=== PATIENT | male | born 1960 | race Caucasian/White ===

== ENCOUNTER 2017-01-28 04:35 | Emergency (ER) | payer BC ==
[~2017-01-28] VITALS: Ht 182.9 cm; Wt 92.5 kg
[2017-01-28 04:35] VITALS: BP_SYST 133
--- NOTE | 2017-01-28 04:35 | NUR ---
ED MD [place] at bedside for medical evaluation.
--- NOTE | 2017-01-28 04:35 | NUR ---
Patient arrived to ED a/o x 4 with c/o 10/10 epigastric pain. Patient reports waking up at 0400 diaphoretic with ABD distention. Patient reports numbness to the left shoulder radiating down the left arm. Upon assessment, patient BP 123/62, HR 46, SpO2 99% on room air, RR 16. Patient appears in acute pain. Denies CP. Denies SOB. No slurred speech. No deficits noted. at bedside.
--- NOTE | 2017-01-28 04:35 | NUR ---
Placed in room 6. Placed on anvilsmith, blood pressure machine and pulse oximeter. To gown for exam. Side rails up.
--- NOTE | 2017-01-28 04:38 | NUR ---
Placed in room 01 . Placed on cardiac cath rn, blood pressure machine and pulse oximeter. To gown for exam. Side rails up. Report given to JULIO Olvera.
--- NOTE | 2017-01-28 04:40 | NUR ---
18 gauge angiocath placed to Left AC. Use of asceptic technique. Opsite placed over site. Blood return noted. Blood for lab drawn from site. Flushed with 10 cc of normal saline. No evidence of infiltration noted. Patient tolerated well.
--- NOTE | 2017-01-28 04:40 | NUR ---
Patient placed on 2L oxygen via nasal cannula.
--- NOTE | 2017-01-28 04:40 | NUR ---
Medicated per MD orders. IVF infusing with no s/s of infiltration at this time. Will continue to monitor
[2017-01-28] MEDS ORDERED: ASPIRIN 325 MG TABLET ONE (04:57)
[2017-01-28] MEDS ORDERED: ASPIRIN 81 MG TAB.CHEW ONE (04:59)
[2017-01-28] MEDS ORDERED: NITROGLYCERIN 1 INCH (GM) OINT. ONE (04:59)
[2017-01-28] MEDS ORDERED: NITROGLYCERIN 0.4 MG TAB.SUBL SL ONE (05:00)
[2017-01-28] MEDS ORDERED: ASPIRIN 81 MG TAB.CHEW PO ONE (05:00)
[2017-01-28] MEDS ORDERED: MORPHINE 2 MG/ML INJ. SYRINGE IVP ONE (05:00)
--- NOTE | 2017-01-28 05:01 | NUR ---
# 20 gauge angiocath placed to right hand. Use of asceptic technique. Opsite placed over site. Blood return noted. Flushed with 10 cc of normal saline. No evidence of infiltration noted. Patient tolerated well.
[2017-01-28 05:10] VITALS: BP_SYST 125
--- NOTE | 2017-01-28 05:10 | NUR ---
[facility] arrived in ED for transport.
--- NOTE | 2017-01-28 05:13 | NUR ---
[facility] out the door with patient ACLS protocol.
--- NOTE | 2017-01-28 05:13 | NUR ---
Patient to be transferred to [facility]. Is being transferred due to higher level of care. Receiving facility has accepting physician and available space. ER physician has signed transfer form. Patient or responsible constitution party has agreed to transfer and signed form. Patient belongings inventoried and will be sent with patient. Copy of nursing notes, lab reports, EKG, Physicians Orders and X-rays to be sent with patient. Report given to [facility] to endorse to receiving facility. Receiving physician is Dr. Waters. [facility] has been called for transfer.
[2017-01-28] MEDS ORDERED: NACL 0.9% 1,000 ML IV ONE (05:15)
[2017-01-28] MEDS ORDERED: HEPARIN SODIUM,PORCINE 5000 UNITS/ML VIAL IVP ONE (05:15)
[2017-01-28] MEDS ORDERED: HEPARIN SODIUM,PORCINE 5000 UNITS/ML VIAL ONE (05:17)
[2017-01-28 05:22] LABS: HEMATOCRIT 45.5 % (36-54); MEAN CORPUSCULAR HEMOGLOBIN 30 pg (27-31); MEAN CORPUSCULAR HGB CONC 33 % (32-36); MEAN CORPUSCULAR VOLUME 90 fL (79.0-98.0); PLATELET COUNT (AUTO) 237 K/uL (130-430); RED BLOOD CELL COUNT(AUTO) 5.03 MIL/uL (4.2-6.2); RED CELL DISTRIBUTION WIDTH 12.5 % (9.0-15.0); WHITE BLOOD COUNT (AUTO) 9.7 K/uL (4.8-10.8)
[2017-01-28 05:32] LABS: INR 0.9 (0.80-1.20); PROTHROMBIN TIME 10.1 SECS (9.5-12.5)
[2017-01-28 05:33] LABS: ALBUMIN 3.7 g/dL (3.4-4.8); CALCIUM 8.5 mg/dL (8.4-11.0); CREATININE 1.32 mg/dL (0.55-1.30); PHOSPHORUS 2.7 mg/dL (2.7-4.5); POTASSIUM 3.4 mmol/L (3.5-5.1); TOTAL BILIRUBIN 0.3 mg/dL (0.0-1.0); TOTAL PROTEIN, SERUM 7.5 g/dL (6.4-8.3)
[2017-01-28 05:59] LABS: BAND % (MANUAL) 1 % (0-6); BASOPHILS % (MANUAL) 0 % (0-2); EOSINOPHILS % (MANUAL) 5 % (0-7); LYMPHOCYTES % (MANUAL) 57 % (20-46); MONOCYTES % (MANUAL) 7 % (0-11)
[2017-01-28 06:14] LABS: BILIRUBIN,URINE NEGATIVE (NEGATIVE); BLOOD, URINE NEGATIVE (NEGATIVE); CLARITY/URINE CLEAR (CLEAR); COLOR,URINE YELLOW (YELLOW); GLUCOSE,URINE NEGATIVE (NEGATIVE); KETONES,URINE NEGATIVE (NEGATIVE); LEUKOCYTE ESTERASE ,URINE NEGATIVE (NEGATIVE); NITRITE, URINE NEGATIVE (NEGATIVE); PH,URINE 5.5 (5.0-8.0); PROTEIN URINE NEGATIVE (NEGATIVE); UROBILINOGEN,URINE 0.2 (0.2-1.0)
[2017-01-28] MEDS ORDERED: NITROGLYCERIN 1 INCH (GM) OINT. TP ONE (06:30)
--- NOTE | 2017-01-28 06:34 | NUR ---
Faxed over results for patients lab and nurse notes to [facility]. Called JULIO Lock at [facility] and received confirmation that patient's lab reports and nursing notes were received at 0631 am.
== END 2017-01-28 05:13 | disposition short-term general hospital (02) ==
LOC: SED 04:35
DX: I21.3 ST elevation (STEMI) myocardial infarction of unspecified site (principal); R41.0 Disorientation, unspecified; R61 Generalized hyperhidrosis; I10 Essential (primary) hypertension
CPT/HCPCS: 36415; 80053; 80061; 81003; 82550; 83735; 83880; 84100; 84484; 85007; 85027; 85379; 85610; 85730; 93005; 96361; 96374; 96375; 99285; J1644; J2270; J7030